=== PATIENT | female | born 1975 | race African-American/Black ===

== ENCOUNTER 2018-08-30 16:12 | Emergency (ER) | payer OTHER ==
[~2018-08-30] VITALS: Ht 149.9 cm; Wt 47.6 kg
[2018-08-30] MEDS ORDERED: MEDROLDOSEPACK PO (17:31)
[2018-08-30 17:55] VITALS: BP 136/54
== END 2018-08-30 17:57 | disposition home or self-care (01) ==
LOC: ER 16:12
DX: H74.8X1 Other specified disorders of right middle ear and mastoid (principal); F17.210 Nicotine dependence, cigarettes, uncomplicated; Z88.6 Allergy status to analgesic agent